=== PATIENT | male | born 1965 | race Caucasian/White ===

== ENCOUNTER 2016-10-13 18:32 | Inpatient (IN) | payer OTHER ==
[~2016-10-13] VITALS: Ht 188 cm; Wt 115.2 kg
[~2016-10-13 18:32] MED LIST: AMLO1CAP6 PO; ASPI81TA2 PO; CHOL200024 PO; IBUP200C62 PO; OMEP20CA10 PO; [UNRECOGNIZED DRUG - CODE] PO CHEW
[2016-10-13] MEDS ORDERED: NORMAL SALINE 1,000 ML IV ONE (19:00)
[2016-10-13] MEDS ORDERED: ONDANSETRON 4mg/2ml INJECTION IV ONE (19:00)
[2016-10-13] MEDS ORDERED: KETOROLAC 30mg/ml INJECTION IV ONE (19:00)
[2016-10-13] MEDS ORDERED: [UNRECOGNIZED DRUG - CODE] PO (19:30)
[2016-10-13 19:41] LABS: BASOPHILS % (AUTO) 0.2 % (0-2); EOSINOPHILS % (AUTO) 0.2 % (0-4); HCT - HEMATOCRIT 47.3 % (41-53); HGB - HEMOGLOBIN 16.4 GM/DL (13.5-17.5); IMMATURE GRANULOCYTE # (AUTO) 0.02 T/MM3 (0.00-0.03); IMMATURE GRANULOCYTE % (AUTO) 0.2 % (0.0-0.5); LYMPHOCYTES % (AUTO) 15.2 % (23-45); MEAN CORPUSCULAR HGB 29.2 UUG (26-34); MEAN CORPUSCULAR HGB CONC(MCHC 34.7 GM/DL (31-37); MEAN CORPUSCULAR VOLUME 84.3 UM3 (80-100); MEAN PLATELET VOLUME 11.1 UM3 (9.4-12.4); MONOCYTES # (AUTO) 0.7 T/MM3 (0-0.8); NEUTROPHILS #(AUTO)-ABSOLUTE 10.2 T/MM3 (1.8-7.7); NEUTROPHILS % (AUTO) 79.2 % (33-66); RED BLOOD COUNT 5.61 M/MM3 (4.50-5.90); WBC - WHITE BLOOD COUNT 12.9 T/MM3 (4.5-11.0)
[2016-10-13 19:45] LABS: ANION GAP 14 MEQ/L (5-15); BUN/CREATININE RATIO 16 RATIO (6-26); CALCIUM 9.2 MG/DL (8.4-10.2); CHLORIDE 106 MEQ/L (98-107); CO2 - CARBON DIOXIDE 24 MEQ/L (22-30); CREATININE 0.8 MG/DL (0.8-1.5); GLOMERULAR FILTRATION RATE 102; GLUCOSE 116 MG/DL (75-110); LIPASE 37 U/L (23-300); POTASSIUM 4.2 MEQ/L (3.6-5); SODIUM 144 MEQ/L (134-144)
[2016-10-13] MEDS ORDERED: SALINE FLUSH 10ml SYRINGE ONE (19:48)
[2016-10-13] MEDS ORDERED: NORMAL SALINE 100 ML ONE (19:48)
[2016-10-13] MEDS ORDERED: IOHEXOL 300 MG/ML 100ml INJECTION ONE (19:48)
--- NOTE | 2016-10-13 19:51 | ERPDOC ---
Departure Disposition Decision Date: Oct 13, 2016 Disposition Decision Time: 20:54 Disposition: 02 TO [facility] Impression Impression Impression: Primary Impression: Colitis, acute Severity: Moderate Condition: Improved Seen By: Physician only Referrals: PERRI BLANCA DO (Family) Problems/Meds/Labs Reviewed?: Yes Medications reviewed and manag: Yes Follow up care ordered?: Yes Mental Status: Alert, Oriented Scripts Oxycodone HCl/Acetaminophen (Percocet 5-325 mg Tablet) 5-325 Tablet 1-2 TAB PO Q4-6H Y for PAIN, #20 TAB 0 Refills Prov: DAVEYBIANCAMarko Martinez APRN 10/15/16 Ondansetron HCl (Zofran) 4 Mg Tablet 4 MG PO Q6H Y for NAUSEA &/OR VOMITING, #10 TAB 1 Refill Prov: BIANCA MARISCAL APRN 10/15/16 Metronidazole (Flagyl) 500 Mg Tablet 500 MG PO Q12HR for 10 Days, #20 TAB 0 Refills Take 1 tablet, by mouth, every 12 hours. Prov: BIANCA MARISCAL APRN 10/15/16 Ciprofloxacin HCl (Cipro) 500 Mg Tablet 500 MG PO Q12HR for 10 Days, #20 TAB 0 Refills Prov: DAVEYBIANCA Martinez APRN 10/15/16 HPI - Abdominal Pain General Chief Complaint: Abdominal Pain Stated Complaint: ABD PAIN,BLOOD IN STOOL Time Seen by Provider: 19:00 Source: patient History/Exam Limitations: no limitations HPI - Abdominal Pain Initial Comments 51yo man presents to the ER with 18 hours of abdominal pain. Pain started in his low abdomen/pelvis. It is crampy, like with his usual lactose-intolerance pain, but it has not improved with bowel movements. Pts position of comfort is lying on his left side. Otherwise, his pain radiates to his RLQ also. Pt did notice some blood mixed in with his stool - has a h/o hemorrhoids. No known h/o diverticuli. Occurred At: home Onset: Gradual, Constant Duration: 12-24 hrs Pain Scale: Now & Worst: 6/10 Quality: cramping Location: LLQ, suprapubic Radiation: RLQ Activities at Onset: sleep Modifying Factors: IMPROVES WITH: analgesics, defecating, lying down, WORSE WITH: movement, palpation, sitting, walking Associated Symptoms: denies symptoms Hx of Similar Symptoms: No Allergies: Coded Allergies: lactose (Unverified Adverse Reaction, Unknown, INTOLERANCE, 10/13/16) Past History Patient Medical History (1) Lactose intolerance Past Medical History Metabolic: hypertension ENMT: allergies Cardiac: CAD GI: GERD Vaccines Hx Influenza Vaccination: Yes (FALL 2013) Hx Pneumococcal Vaccination: No Review of Systems GI Upper Abdomen: DENIES: dysphagia, food intolerances, heartburn/indigestion, hematemesis, nausea, pain, vomiting Lower Abdomen: blood in stool, pain, DENIES: eren-colored stools, constipation , diarrhea, melena, painful BM All other Systems All Other Systems: Reviewed and Negative Physical Exam General General Nourishment: well nourished, well developed, appears stated age, no acute distress, adult, obese General Body Habitus: well groomed Vitals and Pain First Documented Vital Signs Date Time Temp Pulse Resp B/P Pulse Ox O2 Delivery O2 Flow Rate FiO2 10/14/16 04:00 97.0 52 18 132/72 98 Room Air Weight: Kilograms: 114.800 Height (feet): 6 Height (inches): 2.00 Triage Pain Scale: RN VS reviewed by Provider: Yes Normal Exams: Head: Normocephalic w/o trauma Eyes: Pupils are PERRLA w/ EOMI, No scleral icterus, irritation ENMT: No facial trauma, nasal exudates, pharyngeal erythema Neck: Full range of motion, without adenopathy, JVD Lymphatic: No lymphadenopathy Musculoskeletal: No tenderness, or deformity noted Integumentary: No rashes, hives, or bruising noted Neurologic: Patient is alert, and oriented Psychiatric: Patient exhibits, appropriate attention Respiratory (brief) Respiratory: FOUND: clear all rojo, equal bilaterally, symmetrical, NOT FOUND : rales, wheezes Cardiovascular (brief) Cardiac: FOUND: regular rate, regular rhythm, NOT FOUND: click, gallop, murmur , pedal edema, peripheral edema, rub Capillary Refill: <2 sec Pulses: all distal extremities, equal, strong Abdomen (brief) Abdominal Brief: FOUND: bowel normo active x4, soft, NOT FOUND: distended, hepatosplenomegaly, pulsatile mass, tender Differential Diagnoses Considering: Appendicitis, Biliary Colic, Cholecystitis, Constipation, Diverticulitis, Gastroenteritis, GERD, Hernia, Ileus, Pancreatitis, Pyelonephritis, Renal Colic, UTI, Volvulus Progress Results/Orders Orders Lab Results Medications Current ED Medications Sodium Chloride (Normal Saline IV) 1,000 ml @ 125 mls/hr Q8H ONCE IV Last administered on 10/13/16 20:19; Start 10/13/16 at 19:00; Stop 10/14/16 at 02:59 ; Status DC Ondansetron HCl (Zofran) 4 mg O ONCE IV Last administered on 10/13/16 20:20; Start 10/13/16 at 19:00; Stop 10/13/16 at 19:11; Status DC Ketorolac Tromethamine (Toradol) 30 mg O ONCE IV Last administered on 20:20; Start 10/13/16 at 19:00; Stop 10/13/16 at 19:11; Status DC Iohexol 1 bottle 1 bottle STK-MED ONCE .ROUTE ; Start 10/13/16 at 19:48; Stop at 19:49; Status DC Sodium Chloride (NS) 100 ml @ As Directed STK-MED ONCE .ROUTE ; Start 10/13/16 at 19:48; Stop 10/13/16 at 19:49; Status DC Sodium Chloride 10 ml 10 ml STK-MED ONCE .ROUTE ; Start 10/13/16 at 19:48; Stop 10/13/16 at 19:49; Status DC Ertapenem 1 g/ Sodium Chloride 100 ml @ 200 mls/hr O ONCE IV Last administered on 10/13/16 21:22; Start 10/13/16 at 20:45; Stop 10/13/16 at 21:14 ; Status DC Lactated Ringer's (Lactated Ringers) 1,000 ml @ 125 mls/hr Q8H IV Last administered on 10/14/16 08:04; Start 10/13/16 at 20:47; Stop 10/14/16 at 10:58 ; Status DC Progress Progress Pt with colitis. Discussed with surgeon for following while inpt. Hospitalist will admit. Consult/PCP Consult/PCP #1: Physician Contacted: Dr. Santiago Time Called: 20:32 Time of first response: 20:35 Type of discussion: Phone Consult/PCP Discussion Details Understands; requests admission to medical Consult/PCP #2: Physician Contacted: Russ Ramos Time Called: 20:40 Time of first response: 20:42 Type of discussion: Admit Discussion/PCP Discussion Details Will admit pt. CT CT : CT: Abd/Pelvis IV contrast Interpretation: Abnormal (Colitis), Interpreted by TREVON Goodman DO Oct 13, 2016 19:51 11/11 (Lotrel 11/11) 09:00 Cetirizine (Zyrtec) PHA 10/14/16 Logged 09:00 Omeprazole (Prilosec) PHA 10/14/16 Logged 06:30 Place In Facility As: ADMIT 10/13/16 Transmitted 20:47 Ambulate MARIA DOLORES 10/13/16 In Process 20:47 Activity As Tolerated MARIA DOLORES 10/13/16 In Process 20:47 Clear Liquid Diet DIET 10/14/16 Transmitted Breakfast Lr (Lactated Ringers) PHA 10/13/16 Logged 20:47 Oxycodone/Apap 5/325 PHA 10/13/16 Logged (Percocet 5/325) 21:00 Hydromorphone PHA 10/13/16 Logged (Dilaudid) 21:00 Ondansetron Inj PHA 10/13/16 Logged (Zofran) 21:00 Measure Vital Signs MARIA DOLORES 10/13/16 In Process 20:47 Compression Type Scd/ MARIA DOLORES 10/13/16 In Process Osmany Hose 20:47 Piperacillin/Tazobactam PHA 10/13/16 Logged (Zosyn) 21:00 Cbc W/Auto LAB 10/14/16 Logged Diff-Reflex Manual 05:00 Bmp - Basic Metabolic LAB 10/14/16 Logged Panel 05:00 Lactobacillus PHA 10/14/16 Logged (Culturelle) 08:00 Lab Results Laboratory Tests Test 10/13/16 19:26 10/13/16 20:23 White Blood Count 12.9T/MM3 Red Blood Count 5.61M/MM3 Hemoglobin 16.4GM/DL Hematocrit 47.3% Mean Corpuscular Volume 84.3UM3 Mean Corpuscular Hemoglobin 29.2UUG Mean Corpuscular Hemoglobin Concent 34.7GM/DL RDW Standard Deviation 42.1FL Platelet Count 202T/MM3 Mean Platelet Volume 11.1UM3 Immature Granulocyte % (Auto) 0.2% Neutrophils (%) (Auto) 79.2% Lymphocytes (%) (Auto) 15.2% Monocytes (%) (Auto) 5.0% Eosinophils (%) (Auto) 0.2% Basophils (%) (Auto) 0.2% Absolute Immature Granulocyte (auto 0.02T/MM3 Absolute Neutrophils (auto) 10.2T/MM3 Absolute Lymphocytes (auto) 2.0T/MM3 Absolute Monocytes (auto) 0.7T/MM3 Absolute Eosinophils (auto) 0.0T/MM3 Absolute Basophils (auto) 0.0T/MM3 Turbidity < 20 Sodium Level 144MEQ/L Potassium Level 4.2MEQ/L Chloride Level 106MEQ/L Carbon Dioxide Level 24MEQ/L Anion Gap 14MEQ/L Blood Urea Nitrogen 13.0MG/DL Creatinine 0.8MG/DL Glomerular Filtration Rate Calc 102 BUN/Creatinine Ratio 16RATIO Glucose Level 116MG/DL Calculated Osmolality 278MOSM/KG Calcium Level 9.2MG/DL Icterus Index < 2 Lipase 37U/L Chemistry Specimen Hemolysis 57 Urine Collection Type Cleancatch-midstream Urine Color Yellow Urine Turbidity Clear Urine pH 7.0 Urine Specific [place] 1.010 Urine Protein Negative Urine Glucose (UA) Negative Urine Ketones Trace Urine Blood Negative Urine Nitrite Negative Urine Bilirubin Negative Urine Urobilinogen 0.2EU/DL Urine Leukocyte Esterase Negative Urinalysis Comment Microscopic not ind. Medications Current ED Medications Sodium Chloride (Normal Saline IV) 1,000 ml @ 125 mls/hr Q8H ONCE IV Last administered on 10/13/16 20:19; Start 10/13/16 at 19:00; Stop 10/14/16 at 02:59 Ondansetron HCl (Zofran) 4 mg O ONCE IV Last administered on 10/13/16 20:20; Start 10/13/16 at 19:00; Stop 10/13/16 at 19:11; Status DC Ketorolac Tromethamine (Toradol) 30 mg O ONCE IV Last administered on 20:20; Start 10/13/16 at 19:00; Stop 10/13/16 at 19:11; Status DC Iohexol 1 bottle 1 bottle STK-MED ONCE .ROUTE ; Start 10/13/16 at 19:48; Stop at 19:49; Status DC Sodium Chloride (NS) 100 ml @ As Directed STK-MED ONCE .ROUTE ; Start 10/13/16 at 19:48; Stop 10/13/16 at 19:49; Status DC Sodium Chloride 10 ml 10 ml STK-MED ONCE .ROUTE ; Start 10/13/16 at 19:48; Stop 10/13/16 at 19:49; Status DC Ertapenem 1 g/ Sodium Chloride 100 ml @ 200 mls/hr O ONCE IV Last administered on 10/13/16t 21:22; Start 10/13/16 at 20:45; Stop 10/13/16 at 21:14 ; Status DC Lactated Ringer's (Lactated Ringers) 1,000 ml @ 125 mls/hr Q8H IV Last administered on 10/13/16 22:53; Start 10/13/16 at 20:47; Status UNV Progress Progress Pt with colitis. Discussed with surgeon for following while inpt. Hospitalist will admit. Consult/PCP Consult/PCP #1: Physician Contacted: Dr. Santiago Time Called: 20:32 Time of first response: 20:35 Type of discussion: Phone Consult/PCP Discussion Details Understands; requests admission to medical Consult/PCP #2: Physician Contacted: Russ Ramos Time Called: 20:40 Time of first response: 20:42 Type of discussion: Admit Discussion/PCP Discussion Details Will admit pt. CT CT : CT: Abd/Pelvis IV contrast Interpretation: Abnormal (Colitis), Interpreted by TREVON Goodman DO Oct 13, 2016 19:51
[2016-10-13 20:29] LABS: BLOOD, URINE NEGATIVE (NEGATIVE); COLOR,URINE YELLOW (YELLOW); LEUKOCYTE ESTERASE ,URINE NEGATIVE (NEGATIVE); NITRITE,URINE NEGATIVE (NEGATIVE); UROBILINOGEN,URINE 0.2 EU/DL (NORMAL)
[2016-10-13] MEDS ORDERED: ERTAPENEM 1 G in NORMAL SALINE 100 ML IV ONE (20:45)
[2016-10-13] MEDS ORDERED: HYDROMORPHONE 2mg/ml INJECTION IV PRN (21:00)
[2016-10-13] MEDS ORDERED: ONDANSETRON 4mg/2ml INJECTION IV PRN (21:00)
[2016-10-13 21:50] VITALS: BP 128/73; PULSE 92; RESP 18; TEMP 97.4; O2SAT 95
--- NOTE | 2016-10-13 22:00 | NUR ---
ADMIT PT WAS ADMITTED TO 145 FROM ED ON A CART. PT ACCOMPANIED BY ED STAFF AND . PT ALERT AND ORIENTED. REPORTED ABDOMINAL PAIN WAS 4/10 WHICH HE SAID WAS AN IMPROVEMENT FROM WHEN HE CAME TO HOSPITAL. EDUCATED ABOUT THE USE OF CALL LIGHT AND PT SAFETY. WILL CONTINUE TO MONITOR.
[2016-10-13 22:12] VITALS: Ht 188 cm; Wt 115.2 kg
[2016-10-13 22:19] VITALS: PULSE 61; RESP 18; O2SAT 98
--- NOTE | 2016-10-13 22:31 | HPPDOC ---
HPI - Adult Date DATE: 10/13/16 TIME: 22:19 General Chief Complaint: abdominal pain History of Present Illness Please note that the patient was seen via telemedicine with nursing assistance on 10/13/2016 Mr. Deal is a 51yo man with h/o HTN, GERD, hemorrhoids and colon polyps on 2015 colonoscopy now with onset 10/12 late PM of lower quadrant abd pain with nausea but no emesis along with a couple of stools then. Pain persisted through the day with bright red blood a couple of times with stools more loose. No melena or ramya hematochezia. No fevers, chill, emesis, unusual travel or risky PO intake. No other pulm/cardiac symptoms volunteered. NS, invanz, zofran, IV narcotic in ED and feels improved with dull ache but no ramya pain currently. Oral antibiotic just over a month ago but not more recent. No prior colitis. has h/o lactose intol but no IBS or IBD Past Medical History Past Medical History Patient's Medical History: (1) HTN (hypertension) (2) GERD (gastroesophageal reflux disease) (3) Lactose intolerance Surgical History Patient's Surgical History: none Current Medications Home Meds Reported Medications Lactase (Lactaid) 3,000 Unit Tablet, 1 TAB PO TIDWM Y for PRN ORDERS 10/13/16 Ibuprofen (Ibuprofen) 200 Mg Capsule, 600 MG PO Q4H Y for PAIN 02/19/15 Omeprazole (Omeprazole) 20 Mg Capsule.dr, 20 MG PO ACB 02/18/15 Cetirizine HCl (Zyrtec) 10 Mg Tab.chew, 10 MG PO CHEW DAILY 02/18/15 Cholecalciferol (Vitamin D3) (Vitamin D) 2,000 Unit Tablet, 2000 UNIT PO HS 02/18/15 Aspirin (Aspirin) 81 Mg Tab.chew, 81 MG PO DAILY 02/18/15 Amlodipine Besylate/Benazepril (Lotrel 5-20 mg Capsule) 1 Cap Capsule, 1 CAP PO DAILY 02/18/15 Allergies: Coded Allergies: lactose (Unverified Adverse Reaction, Unknown, INTOLERANCE, 10/13/16) Family History Family History: parents both alive with no early CAD Social History Smoking Status: Never smoker Substance Use Type: does not use Marital Status: Housing: house Household Members: spouse Advance Directives: Yes Full Code Review of Systems Unable to Obtain Comments 10+ systems reviewed and negative aside from in HPI Physical Exam General General Nourishment: well nourished, well developed, apparent age, adult Vital Signs Vital Signs Date Time Temp Pulse Resp B/P Pulse Ox O2 Delivery O2 Flow Rate FiO2 10/13/16 18:50 98.2 61 20 160/90 95 Room Air Height (Feet): 6 Height (Inches): 2.00 Telemetry Rhythm: Sinus Rhythm Eyes Brief: FOUND: EOMI Respiratory Brief: FOUND: equal bilaterally, symmetrical, NOT FOUND: wheezes Comments nonlabored Cardiovascular (brief) Cardiac Brief: FOUND: regular rate, regular rhythm, NOT FOUND: murmur Abdomen (brief) Comments soft, no guarding, hyperactive bowel sounds but no frankly tympanitic Integumentary (brief) Integumentary Brief: FOUND: pink Neurologic (brief) Comments no lateralizing signs Neurologic RN Documented GCS Eye Opening: Verbal: Motor: Total: Psychiatric (brief) FOUND: alert, normal affect, oriented Laboratory Laboratory Tests Test 10/13/16 19:26 10/13/16 20:23 White Blood Count 12.9T/MM3 Red Blood Count 5.61M/MM3 Hemoglobin 16.4GM/DL Hematocrit 47.3% Mean Corpuscular Volume 84.3UM3 Mean Corpuscular Hemoglobin 29.2UUG Mean Corpuscular Hemoglobin Concent 34.7GM/DL RDW Standard Deviation 42.1FL Platelet Count 202T/MM3 Mean Platelet Volume 11.1UM3 Immature Granulocyte % (Auto) 0.2% Neutrophils (%) (Auto) 79.2% Lymphocytes (%) (Auto) 15.2% Monocytes (%) (Auto) 5.0% Eosinophils (%) (Auto) 0.2% Basophils (%) (Auto) 0.2% Absolute Immature Granulocyte (auto 0.02T/MM3 Absolute Neutrophils (auto) 10.2T/MM3 Absolute Lymphocytes (auto) 2.0T/MM3 Absolute Monocytes (auto) 0.7T/MM3 Absolute Eosinophils (auto) 0.0T/MM3 Absolute Basophils (auto) 0.0T/MM3 Turbidity < 20 Sodium Level 144MEQ/L Potassium Level 4.2MEQ/L Chloride Level 106MEQ/L Carbon Dioxide Level 24MEQ/L Anion Gap 14MEQ/L Blood Urea Nitrogen 13.0MG/DL Creatinine 0.8MG/DL Glomerular Filtration Rate Calc 102 BUN/Creatinine Ratio 16RATIO Glucose Level 116MG/DL Calculated Osmolality 278MOSM/KG Calcium Level 9.2MG/DL Icterus Index < 2 Lipase 37U/L Chemistry Specimen Hemolysis 57 Urine Collection Type Cleancatch-midstream Urine Color Yellow Urine Turbidity Clear Urine pH 7.0 Urine Specific [place] 1.010 Urine Protein Negative Urine Glucose (UA) Negative Urine Ketones Trace Urine Blood Negative Urine Nitrite Negative Urine Bilirubin Negative Urine Urobilinogen 0.2EU/DL Urine Leukocyte Esterase Negative Urinalysis Comment Microscopic not ind. Assessment & Plan Problems: (1) Colitis, acute Status: Acute Assessment & Plan: acute infectious colitis, admit to acute inpatient care status with LR, Zosyn, no sepsis evident by vitals normal. Supportive care with prns and no antibiotic in the last month. With no anemia doubt salmonella , shigella, campylobact, etc. Probiotic. Clear liquids only. CT reassuring with no acute surgical abdomen. (2) HTN (hypertension) Status: Chronic Qualifiers: Hypertension type: essential hypertension Qualified Codes: I10 - Essential (primary) hypertension Assessment & Plan: ok for MIGUELITO-1/diuretic to continue (3) GERD (gastroesophageal reflux disease) Assessment & Plan: PPI This patient is to be admitted to inpatient services. The patient is medically appropriate and meets medical necessity for inpatient admission in accordance with CMS section 42 C.F.R 412.3. The patient is reasonable expected to be discharged or transferred to a hospital within 96 hours after inpatient admission. I reasonable expect the patient will require inpatient services that span a period of time over two midnights. My rationale for determining inpatient admission necessary is noted below. Additional documentation will be found in the progress note. Treatment plan required inpatient setting; care in an outpatient setting would have threatened the patient's safety or health. Treatment plan required clinical-monitoring, treatments, medications and procedures that required an inpatient setting. Unstable medical condition: clinical signs and symptoms present that were significantly above or below those of normal range for the patient, and were such that further monitoring and evaluation was medically necessary. DVT Prophylaxis: SCD'S Code Status Full Code Hospital Course Summary Disclaimer The hospital course summary below is not to be considered part of the above Progress Note. LITO BHATTI MD Oct 13, 2016 22:24
[2016-10-13] MEDS: LR 1,000 ML IV SCH (22:53)
[2016-10-13 23:06] VITALS: BP 126/78; PULSE 54; RESP 18; TEMP 96.7; O2SAT 97
[2016-10-13] MEDS: PIPERACILLIN/TAZOBACTAM 4.5 G in NORMAL SALINE 100 ML IV SCH (23:42)
[2016-10-14 04:00] VITALS: BP 132/72; PULSE 52; RESP 18; TEMP 97; O2SAT 98
[2016-10-14] MEDS: PIPERACILLIN/TAZOBACTAM 4.5 G in NORMAL SALINE 100 ML IV SCH ×4 (04:26→21:42)
[2016-10-14] MEDS: OXYCODONE/APAP 5mg/325mg TABLET PO PRN ×2 (04:36→22:51)
[2016-10-14 05:26] LABS: BASOPHILS % (AUTO) 0.2 % (0-2); EOSINOPHILS # (AUTO) 0.2 T/MM3 (0-0.5); EOSINOPHILS % (AUTO) 1.7 % (0-4); HCT - HEMATOCRIT 43.9 % (41-53); HGB - HEMOGLOBIN 14.8 GM/DL (13.5-17.5); IMMATURE GRANULOCYTE # (AUTO) 0.02 T/MM3 (0.00-0.03); IMMATURE GRANULOCYTE % (AUTO) 0.2 % (0.0-0.5); LYMPHOCYTES # (AUTO) 3.2 T/MM3 (1-4.8); LYMPHOCYTES % (AUTO) 29.3 % (23-45); MEAN CORPUSCULAR HGB CONC(MCHC 33.7 GM/DL (31-37); MEAN CORPUSCULAR VOLUME 85.9 UM3 (80-100); MEAN PLATELET VOLUME 11.1 UM3 (9.4-12.4); MONOCYTES # (AUTO) 1.1 T/MM3 (0-0.8); MONOCYTES % (AUTO) 9.9 % (0-9.0); NEUTROPHILS #(AUTO)-ABSOLUTE 6.4 T/MM3 (1.8-7.7); NEUTROPHILS % (AUTO) 58.7 % (33-66); RED BLOOD COUNT 5.11 M/MM3 (4.50-5.90); WBC - WHITE BLOOD COUNT 10.9 T/MM3 (4.5-11.0)
[2016-10-14 05:43] LABS: ANION GAP 12 MEQ/L (5-15); BUN/CREATININE RATIO 14 RATIO (6-26); CALCIUM 8.7 MG/DL (8.4-10.2); CHLORIDE 106 MEQ/L (98-107); CO2 - CARBON DIOXIDE 26 MEQ/L (22-30); GLOMERULAR FILTRATION RATE 78; GLUCOSE 98 MG/DL (75-110); POTASSIUM 3.9 MEQ/L (3.6-5); SODIUM 144 MEQ/L (134-144)
[2016-10-14] MEDS: OMEPRAZOLE 20 MG CAPSULE PO SCH (06:05)
--- NOTE | 2016-10-14 07:14 | NUR ---
SUMMARY PT ALERT AND ORIENTED X 3. WAS GIVEN PAIN MEDICATION X 1 FOR ABD PAIN. REPORTED THAT HE DOESN'T HAVE ANY PAIN THIS MORNING. UP AD JAQUELIN. PT REFUSED TO WEAR SCD'S . TOLERATING IV FLUIDS WELL. EDUCATED ABT CALL LIGHT USE AND PT SAFETY.
[2016-10-14 07:20] VITALS: BP 112/65; PULSE 57; RESP 14; TEMP 97.2; O2SAT 100
[2016-10-14] MEDS: LR 1,000 ML IV SCH (08:04)
[2016-10-14] MEDS ORDERED: AMLODIPINE/BENAZEPRIL 5 MG/20 MG CAPSULE PO SCH (09:00)
[2016-10-14] MEDS: CETIRIZINE 10 MG TABLET PO SCH (09:03)
[2016-10-14] MEDS: LACTOBACILLUS (15B cfu) CAPSULE PO SCH ×2 (09:03→18:48)
--- NOTE | 2016-10-14 10:47 | NUR ---
CM CM IN TO SEE PT AND FAMILY. CM EXPLAINS ROLE AND PROVIDES CONTACT INFORMATION. PT DENIES HOME NEEDS. PT AND FAMILY AWARE TO CONTACT CM SHOULD NEEDS ARISE.
[2016-10-14 11:44] VITALS: BP 138/85; PULSE 65; RESP 16; TEMP 97.1; O2SAT 98
--- NOTE | 2016-10-14 13:07 | PNPDOC ---
Subjective Date DATE: 10/14/16 TIME: 12:58 Subjective Admitted overnight with abdominal pain, loose stools with some intermixed blood. CTAP consistent with colitis, received invanz and now on zosyn Q6H with improvement in WBC. Afebrile overnight. Has not had a stool since admission. H&P reviewed from overight including PMH/PSH/social and family history. He does have a history of IBS. Feeling better today, still with some queasiness, asking about going home. Discussed that we should advance his diet first, see if he tolerates solid foods and monitor today on IV antibiotics. Objective Vital Signs Vital signs Vital Signs Date Time Temp Pulse Resp B/P Pulse Ox O2 Delivery O2 Flow Rate FiO2 10/14/16 11:44 97.1 65 16 138/85 98 Room Air Telemetry Rhythm: Sinus Rhythm Height (Feet): 6 Height (Inches): 2.00 Weight (Kilograms): 115.600 General General Appearance: Alert, Orientated x 3, No Acute Distress Eyes (Brief) Eyes: FOUND: EOMI, PERRL, NOT FOUND: scleral icterus Respiratory (Brief) Respiratory: FOUND: clear all rojo, equal bilaterally, NOT FOUND: rales, wheezes Cardiovascular (Brief) Cardiac: FOUND: regular rate, regular rhythm, NOT FOUND: pedal edema Abdomen (Brief) Abdominal: FOUND: distended (mild), soft, tender (diffusely without rebound, rigidity or guarding) Comments hyperactive BS Extremities (Brief) Extremity : Extremity Finding: FOUND: warm, NOT FOUND: cyanosis, edema Integumentary (Brief) Integumentary: FOUND: dry, warm, NOT FOUND: rash Laboratory Laboratory Laboratory Tests 10/13/16 19:26 10/14/16 04:38 Laboratory Tests 10/13/16 19:26 10/14/16 04:38 Microbiology Microbiology Microbiology Date/Time Source Procedure Growth Status 10/13/16 20:57 Peripheral/Iv Start Blood Culture - Preliminary CULTURE INITIATED - RESULTS PENDING Resulted 10/13/16 20:56 Peripheral/Iv Start Blood Culture - Preliminary CULTURE INITIATED - RESULTS PENDING Resulted Radiology CT final report still pending (CTAP); per verbal report consistent with colitis. Assessment & Plan Problems: (1) Colitis, acute Status: Acute Assessment & Plan: acute infectious colitis, admit to acute inpatient care status with LR, Zosyn, no sepsis evident by vitals normal. Supportive care with prns and no antibiotic in the last month. With no anemia doubt salmonella , shigella, campylobact, etc. Probiotic. Clear liquids only. CT reassuring with no acute surgical abdomen. (2) HTN (hypertension) Status: Chronic Qualifiers: Hypertension type: essential hypertension Qualified Codes: I10 - Essential (primary) hypertension Assessment & Plan: ACEI held this morning due to borderline BP (3) GERD (gastroesophageal reflux disease) Status: Chronic Assessment & Plan: PPI* Assessment Continue zosyn IV Q6H and monitor for any recurrence of symptoms. Monitor vital signs and hold ACEI/amlodipine combination Stop IVF this morning and allow general diet as tolerated Monitor for fevers or bloody stools Repeat metabolic panel, CBC in AM for surveillance. If improving rapidly, would consider DC home tomorrow with oral cipro/flagyl for ongoing antibiotic coverage. If not tolerating diet, change in vitals, bloody stools will need further evaluation. Plan/Intensity of Service Case discussed with case management, nursing staff. Imaging and labs reviewed and orders placed for tomorrow. Code Status Full Code Hospital Course Summary Disclaimer The hospital course summary below is not to be considered part of the above Progress Note. Hospital Course Summary 10/14/16 Continue zosyn IV Q6H and monitor for any recurrence of symptoms. Monitor vital signs and hold ACEI/amlodipine combination Stop IVF this morning and allow general diet as tolerated Monitor for fevers or bloody stools Repeat metabolic panel, CBC in AM for surveillance. If improving rapidly, would consider DC home tomorrow with oral cipro/flagyl for ongoing antibiotic coverage. If not tolerating diet, change in vitals, bloody stools will need further evaluation. BRISEIDA CARBAJAL MD Oct 14, 2016 13:01
[2016-10-14 16:32] VITALS: BP 130/72; PULSE 53; RESP 14; TEMP 98.1; O2SAT 99
--- NOTE | 2016-10-14 19:22 | NUR ---
SHIFT SUMMARY PT ALERT AND ORIENTED X3. PT ON RA, DENIES SOA. DENIES PAIN, DENIES N/V AT THIS TIME. UP AD JAQUELIN, STEADY ON FEET. ADEQUATE URINE OUTPUT, NO BM THIS SHIFT. IVL RIGHT HAND PATENT. PT ABLE TO MAKE NEEDS KNOWN. CALL LIGHT WITHIN REACH.
--- NOTE | 2016-10-14 20:01 | NUR ---
STUDENT CHARTING REVIEWED BY THIS NURSE.
[2016-10-14 21:45] VITALS: BP 121/74; PULSE 52; RESP 16; TEMP 97.6; O2SAT 97
[2016-10-15] MEDS: PIPERACILLIN/TAZOBACTAM 4.5 G in NORMAL SALINE 100 ML IV SCH ×2 (04:30→09:27)
[2016-10-15 04:37] VITALS: BP 118/67; PULSE 48; RESP 18; TEMP 96.4
[2016-10-15 05:40] LABS: HCT - HEMATOCRIT 44.8 % (41-53); HGB - HEMOGLOBIN 14.8 GM/DL (13.5-17.5); MEAN CORPUSCULAR HGB 28.7 UUG (26-34); MEAN CORPUSCULAR VOLUME 86.8 UM3 (80-100); RED BLOOD COUNT 5.16 M/MM3 (4.50-5.90); WBC - WHITE BLOOD COUNT 8.1 T/MM3 (4.5-11.0)
[2016-10-15 05:47] LABS: ALBUMIN 4.1 G/DL (3.5-5.0); ANION GAP 11 MEQ/L (5-15); BUN/CREATININE RATIO 12 RATIO (6-26); CHLORIDE 107 MEQ/L (98-107); CO2 - CARBON DIOXIDE 30 MEQ/L (22-30); CREATININE 1.3 MG/DL (0.8-1.5); GLOMERULAR FILTRATION RATE 58; GLUCOSE 93 MG/DL (75-110); POTASSIUM 4.3 MEQ/L (3.6-5); SODIUM 148 MEQ/L (134-144)
[2016-10-15] MEDS: OMEPRAZOLE 20 MG CAPSULE PO SCH (05:48)
--- NOTE | 2016-10-15 07:06 | NUR ---
SUMMARY PT ALERT AND ORIENTED. WAS GIVEN PAIN MEDICATION AT BEDTIME PER PT REQUEST FOR ABDOMINAL PAIN. PT IS UP AD JAQUELIN. REFUSED TO USE TH SCD'S. WAS EDUCATED THE NEED FOR USING SCD'S. WAS EDUCATED ABT CALL LIGHT USE AND PT SAFETY. RM AIR ALL NIGHT. PT HR RANGING BTW 46-52.
[2016-10-15] MEDS ORDERED: NORMAL SALINE 500 ML IV PRN (07:30)
[2016-10-15 08:57] VITALS: BP 132/79; PULSE 52; RESP 16; TEMP 96.6; O2SAT 97
[2016-10-15] MEDS: CETIRIZINE 10 MG TABLET PO SCH (09:27)
[2016-10-15] MEDS: LACTOBACILLUS (15B cfu) CAPSULE PO SCH (09:27)
[2016-10-15] MEDS ORDERED: METR500T PO (09:48)
[2016-10-15] MEDS ORDERED: ONDA4TAB4 PO (09:48)
[2016-10-15] MEDS ORDERED: CIPR-212 PO (09:48)
[2016-10-15] MEDS ORDERED: OXYC1TAB8 PO (09:48)
--- NOTE | 2016-10-15 09:50 | DSPDOC ---
LLUVIA MARISCAL BENDER HAND 10/15/16 0934: General Date Date DATE: 10/15/16 TIME: 09:30 Attending Physician Briseida Barros MD Admitting Physician Juana Queen MD Consulting Physician None Admitting Diagnosis Acute colitis Discharge Diagnosis (1) Colitis, acute (2) HTN (hypertension) (3) GERD (gastroesophageal reflux disease) Procedures None Laboratory Laboratory Tests Test 10/14/16 04:38 10/15/16 04:24 White Blood Count 10.9T/MM3 (4.5-11.0) 8.1T/MM3 (4.5-11.0) Red Blood Count 5.11M/MM3 (4.50-5.90) 5.16M/MM3 (4.50-5.90) Hemoglobin 14.8GM/DL (13.5-17.5) 14.8GM/DL (13.5-17.5) Hematocrit 43.9% (41-53) 44.8% (41-53) Mean Corpuscular Volume 85.9UM3 (80-100) 86.8UM3 (80-100) Mean Corpuscular Hemoglobin 29.0UUG (26-34) 28.7UUG (26-34) Mean Corpuscular Hemoglobin Concent 33.7GM/DL (31-37) 33.0GM/DL (31-37) RDW Standard Deviation 42.8FL (36.9-50.2) 43.1FL (36.9-50.2) Platelet Count 182T/MM3 (130-400) 192T/MM3 (130-400) Mean Platelet Volume 11.1UM3 (9.4-12.4) 11.0UM3 (9.4-12.4) Immature Granulocyte % (Auto) 0.2% (0.0-0.5) Neutrophils (%) (Auto) 58.7% (33-66) Lymphocytes (%) (Auto) 29.3% (23-45) Monocytes (%) (Auto) 9.9% (0-9.0) Eosinophils (%) (Auto) 1.7% (0-4) Basophils (%) (Auto) 0.2% (0-2) Absolute Immature Granulocyte (auto 0.02T/MM3 (0.00-0.03) Absolute Neutrophils (auto) 6.4T/MM3 (1.8-7.7) Absolute Lymphocytes (auto) 3.2T/MM3 (1-4.8) Absolute Monocytes (auto) 1.1T/MM3 (0-0.8) Absolute Eosinophils (auto) 0.2T/MM3 (0-0.5) Absolute Basophils (auto) 0.0T/MM3 (0-0.2) Turbidity < 20 (0-20) < 20 (0-20) Sodium Level 144MEQ/L (134-144) 148MEQ/L (134-144) Potassium Level 3.9MEQ/L (3.6-5) 4.3MEQ/L (3.6-5) Chloride Level 106MEQ/L (98-107) 107MEQ/L (98-107) Carbon Dioxide Level 26MEQ/L (22-30) 30MEQ/L (22-30) Anion Gap 12MEQ/L (5-15) 11MEQ/L (5-15) Blood Urea Nitrogen 14.0MG/DL (9-20) 15.0MG/DL (9-20) Creatinine 1.0MG/DL (0.8-1.5) 1.3MG/DL (0.8-1.5) Glomerular Filtration Rate Calc 78 58 BUN/Creatinine Ratio 14RATIO (6-26) 12RATIO (6-26) Glucose Level 98MG/DL (75-110) 93MG/DL (75-110) Calculated Osmolality 278MOSM/KG (261-280) 285MOSM/KG (261-280) Calcium Level 8.7MG/DL (8.4-10.2) 9.0MG/DL (8.4-10.2) Icterus Index < 2 (0-7) < 2 (0-7) Chemistry Specimen Hemolysis < 15 (0-25) < 15 (0-25) Phosphorus Level 4.0MG/DL (2.5-4.5) Albumin 4.1G/DL (3.5-5.0) Microbiology Microbiology Date/Time Source Procedure Growth Status 10/13/16 20:57 Peripheral/Iv Start Blood Culture - Preliminary NO GROWTH AFTER 24 HOURS Resulted 10/13/16 20:56 Peripheral/Iv Start Blood Culture - Preliminary NO GROWTH AFTER [address]- 2.1 cm left adrenal adenoma Descending colitis History of Present Illness Mr. Deal is a 51yo man with h/o HTN, GERD, hemorrhoids and colon polyps on 2016 colonoscopy now with onset 10/12 late PM of lower quadrant abd pain with nausea but no emesis along with a couple of stools then. Pain persisted through the day with bright red blood a couple of times with stools more loose. No melena or ramya hematochezia. No fevers, chill, emesis, unusual travel or risky PO intake. No other pulm/cardiac symptoms volunteered. NS, invanz, zofran, IV narcotic in ED and feels improved with dull ache but no ramya pain currently. Oral antibiotic just over a month ago but not more recent. No prior colitis. has h/o lactose intol but no IBS or IBD Hospital Course 10/14/16 Continue zosyn IV Q6H and monitor for any recurrence of symptoms. Monitor vital signs and hold ACEI/amlodipine combination Stop IVF this morning and allow general diet as tolerated Monitor for fevers or bloody stools Repeat metabolic panel, CBC in AM for surveillance. If improving rapidly, would consider DC home tomorrow with oral cipro/flagyl for ongoing antibiotic coverage. If not tolerating diet, change in vitals, bloody stools will need further evaluation. 10/15/16 Patient is feeling quite a bit better. Minimal abdominal pain. Did have one loose/soft stool today. No blood is reported. Afebrile overnight. A bit "queasy", but no vomiting. Tolerating regular diet. Agreeable to discharging home. Discussed antibiotics, plan of care, side effects of meds. Counselled on avoidance of ETOH, Sunburn on Flagyl, Cipro. He reports a history of CE with removal of polyps. Exam: Gen: AAO X 3. NAD. Ple[place], [place]. Neck: Supple CV: S1S2. RRR. No peripheral edema. Lungs: CTAB. No SOA. No cough observed. Abd: Soft. Mildly distended, Mildly tender. Hypoactive BS x 4 quad. Ext: No E/C/C. Laboratory Tests Test 10/15/16 04:24 White Blood Count 8.1T/MM3 Red Blood Count 5.16M/MM3 Hemoglobin 14.8GM/DL Hematocrit 44.8% Mean Corpuscular Volume 86.8UM3 Mean Corpuscular Hemoglobin 28.7UUG Mean Corpuscular Hemoglobin Concent 33.0GM/DL RDW Standard Deviation 43.1FL Platelet Count 192T/MM3 Mean Platelet Volume 11.0UM3 Turbidity < 20 Sodium Level 148MEQ/L Potassium Level 4.3MEQ/L Chloride Level 107MEQ/L Carbon Dioxide Level 30MEQ/L Anion Gap 11MEQ/L Blood Urea Nitrogen 15.0MG/DL Creatinine 1.3MG/DL Glomerular Filtration Rate Calc 58 BUN/Creatinine Ratio 12RATIO Glucose Level 93MG/DL Calculated Osmolality 285MOSM/KG Calcium Level 9.0MG/DL Phosphorus Level 4.0MG/DL Icterus Index < 2 Albumin 4.1G/DL Chemistry Specimen Hemolysis < 15 Problems: (1) Colitis, acute Status: Acute Assessment & Plan: Plan to DC home on Cipro/Flagyl x 10 days. Will need to see Dr. Sandoval in the next week for wellness check. PRN pain meds, antiemetics. (2) HTN (hypertension) Status: Chronic Assessment & Plan: Hold antihypertensives until SBP above 140. (3) GERD (gastroesophageal reflux disease) Status: Chronic Assessment & Plan: PPI* DVT Prophylaxis: SCD'S GI Prophylaxis: Other Code Status Full Code Home Meds Active Scripts Oxycodone HCl/Acetaminophen (Percocet 5-325 mg Tablet) 5-325 Tablet, 1-2 TAB PO Q4-6H Y for PAIN, #20 TAB 0 Refills Prov:LLUVIA MARISCAL APRN 10/15/16 Ondansetron HCl (Zofran) 4 Mg Tablet, 4 MG PO Q6H Y for NAUSEA &/OR VOMITING, # 10 TAB 1 Refill Prov:LLUVIA MARISCAL APRN 10/15/16 Metronidazole (Flagyl) 500 Mg Tablet, 500 MG PO Q12HR for 10 Days, #20 TAB 0 Refills Take 1 tablet, by mouth, every 12 hours. Prov:LLUVIA MARISCAL APRN 10/15/16 Ciprofloxacin HCl (Cipro) 500 Mg Tablet, 500 MG PO Q12HR for 10 Days, #20 TAB 0 Refills Prov:LLUVIA MARISCAL APRN 10/15/16 Reported Medications Lactase (Lactaid) 3,000 Unit Tablet, 1 TAB PO TIDWM Y for PRN ORDERS 10/13/16 Omeprazole (Omeprazole) 20 Mg Capsule.dr, 20 MG PO ACB 02/18/15 Cetirizine HCl (Zyrtec) 10 Mg Tab.chew, 10 MG PO CHEW DAILY 02/18/15 Cholecalciferol (Vitamin D3) (Vitamin D) 2,000 Unit Tablet, 2000 UNIT PO HS 02/18/15 Discontinued Reported Medications Ibuprofen (Ibuprofen) 200 Mg Capsule, 600 MG PO Q4H Y for PAIN 02/19/15 Aspirin (Aspirin) 81 Mg Tab.chew, 81 MG PO DAILY 02/18/15 Amlodipine Besylate/Benazepril (Lotrel 5-20 mg Capsule) 1 Cap Capsule, 1 CAP PO DAILY 02/18/15 Face to Face Encounter I met with patient on the day of dismissal and discussed follow up appointments , medications, and safety plan. Discharge Disposition To Home. Copies To 1: PERRI SANDOVAL DO Copies To 2: PRECIOUS EVANS MD, AMANDA M MD 10/15/16 1118: Hospital Course Home Meds Active Scripts Oxycodone HCl/Acetaminophen (Percocet 5-325 mg Tablet) 5-325 Tablet, 1-2 TAB PO Q4-6H Y for PAIN, #20 TAB 0 Refills Prov:LLUVIA MARISCAL APRN 10/15/16 Ondansetron HCl (Zofran) 4 Mg Tablet, 4 MG PO Q6H Y for NAUSEA &/OR VOMITING, # 10 TAB 1 Refill Prov:LLUVIA MARISCAL APRN 10/15/16 Metronidazole (Flagyl) 500 Mg Tablet, 500 MG PO Q12HR for 10 Days, #20 TAB 0 Refills Take 1 tablet, by mouth, every 12 hours. Prov:LLUVIA MARISCAL APRN 10/15/16 Ciprofloxacin HCl (Cipro) 500 Mg Tablet, 500 MG PO Q12HR for 10 Days, #20 TAB 0 Refills Prov:LLUVIA MARISCAL APRN 10/15/16 Reported Medications Lactase (Lactaid) 3,000 Unit Tablet, 1 TAB PO TIDWM Y for PRN ORDERS 10/13/16 Omeprazole (Omeprazole) 20 Mg Capsule.dr, 20 MG PO ACB 02/18/15 Cetirizine HCl (Zyrtec) 10 Mg Tab.chew, 10 MG PO CHEW DAILY 02/18/15 Cholecalciferol (Vitamin D3) (Vitamin D) 2,000 Unit Tablet, 2000 UNIT PO HS 02/18/15 Discontinued Reported Medications Ibuprofen (Ibuprofen) 200 Mg Capsule, 600 MG PO Q4H Y for PAIN 02/19/15 Aspirin (Aspirin) 81 Mg Tab.chew, 81 MG PO DAILY 02/18/15 Amlodipine Besylate/Benazepril (Lotrel 5-20 mg Capsule) 1 Cap Capsule, 1 CAP PO DAILY 02/18/15 Face to Face Encounter Patient was seen and examined independently of Lluvia prior to discharge and all questions answered. Much improved, will DC home with his and complete 10 days of cipro/flagyl for colitis. Will follow up with Dr. Sandoval for further evaluation. No further bloody stools. Encouraged increased oral intake of fluid as Na and creatinine very mildly elevated on labs today. Copies To 1: PERRI SANDOVAL DO Copies To 2: PRECIOUS EVANS MD, KIRA D APRN Oct 15, 2016 09:34 BRISEIDA BARROS MD Oct 15, 2016 11:18
--- NOTE | 2016-10-15 10:08 | DI ---
Indication: ITS.REASON: abd pain with blood PROCEDURE: CT ABD/PELVIS W/CONTRAST ONLY: Encounter: Initial Comparison: None Technique: Axial CT images were performed through the abdomen and pelvis after the administration of intravenous contrast. Coronal and sagittal two-dimensional reformats. Automated Exposure Control and Iterative Reconstruction dose reducing techniques were utilized. Contrast: Omnipaque 300 98 mL Findings: The lung bases are clear. The liver is normal. The gallbladder, spleen, pancreas and right adrenal gland are within normal limits. Indeterminate 2.4 cm left adrenal nodule. Small superior pole left renal cyst. Kidneys are otherwise normal. No abdominal or pelvic adenopathy. Bladder is normal. Prostate and rectum are normal. No free fluid or evidence of a bowel obstruction. Mild apparent colonic wall thickening of the descending colon, although it is quite decompressed. Bone windows are unremarkable for age. Impression: 1. Possible descending colitis. 2. 2.4 cm left adrenal nodule could be an adenoma. Further evaluation with adrenal protocol CT or MRI could be performed. There is a preliminary report by [employer]. .
--- NOTE | 2016-10-15 11:11 | NUR ---
DISMISSAL PT DISMISSED TO HOME AT THIS TIME, ACCOMPANIED BY . DISMISSAL INSTRUCTIONS REVIEWED, QUESTIONS ANSWERED. PT EXPRESSES UNDERSTANDING OF DISMISSAL INSTRUCTIONS, INCLUDING BUT NOT LIMITED TO, S/S TO REPORT TO [facility] MEDICATION [facility]. PT TO SCHEDULE FOLLOW-UP WITH DR. BLANCA, EXPRESSES UNDERSTANDING. PT ALSO EXPRESSES UNDERSTANDING OF NOT DRIVING IF TAKING PERCOCET. PRESCRIPTION FOR PERCOCET SENT WITH PT. PRESCRIPTIONS FOR OTHER MEDS SENT TO [facility] PER PT'S REQUEST. IV DC'D, BELONGINGS GATHERED.
== END 2016-10-15 11:11 | disposition home or self-care (01) | DRG 392 ==
LOC: ED 18:32 → EDHOLD 20:47 → MED 21:45
PROVIDERS: ADMIT Hospitalist; ATTEND Internal Medicine
DX: K52.9 Noninfective gastroenteritis and colitis, unspecified (principal); I10 Essential (primary) hypertension; K21.9 Gastro-esophageal reflux disease without esophagitis; Z79.82 Long term (current) use of aspirin
CPT/HCPCS: 36415; 80048; 80069; 81003; 83690; 85025; 85027; 87040; 96374; 96375